=== PATIENT | male | born 1945 | race Caucasian/White ===

== ENCOUNTER → 2016-11-22 | Outpatient (CLI) | payer MEDICARE, BC ==
[~2016-11-22] MED LIST: ASPIRIN PO; CIPRO PO; LISINOPRIL PO; NORVASC PO; PATIENT'S PHARMACY; PLAVIX PO; TOPROL XL PO; UNKNOWN ABX; VYTORIN 10/20 T1 TAB PO; VYTORIN 10/40 T1 TAB PO; VYTORIN PO
--- NOTE | ~2016-11-22 | EKG ---
[id number] NAME: ZAY SAUNDERS MR#: [id number] EKG Electrocardiogram shows normal sinus rhythm and is within normal limits. Poor R wave progression V1 and V2. No previous tracings are available for comparison. Dictated by...
[2016-11-22 11:12] LABS: BASOPHIL# 0.1 X10e3 (0-0.3); EOSINOPHIL# 0.1 X10e3 (0-0.7); EOSINOPHIL% 1.8 % (0.0-7.0); HEMATOCRIT 48.5 % (38.0-50.0); LYMPHOCYTE# 1.6 X10e3 (1.0-3.5); LYMPHOCYTE% 22.5 % (17.0-45.0); MEAN CORPUSCULAR HEMOGLOBIN 31.1 PG (28-34); MEAN CORPUSCULAR HGB CONC 33.1 g/dL (30-36); MEAN PLATELET VOLUME 10.2 FL (6.5-11.5); NEUTROPHIL# 4.4 X10e3 (1.5-7.1); NEUTROPHIL% 60.7 % (40-75); PLATELET COUNT 202 X10e3 (140-420); RED BLOOD COUNT 5.16 X10e (3.90-5.60); RED CELL DISTRIBUTION WIDTH 13.9 % (11.0-15.5); WHITE BLOOD COUNT 7.3 X10e3 (4.0-10.5)
[2016-11-22 11:16] LABS: DIFF IND NO
[2016-11-22 11:44] LABS: BLOOD UREA NITROGEN 18 mg/dL (9-23); CALCIUM SERUM 9.3 mg/dL (8.4-10.2); CARBON DIOXIDE 27 mmol/L (22-31); CHLORIDE 108 mmol/L (100-111); GLOM FILT RATE Estimated ABOVE60 mL/min (>60); GLUCOSE FASTING 103 mg/dL (70-110); POTASSIUM 4.9 mmol/L (3.5-5.1); SODIUM 139 mmol/L (135-145)
== END | disposition home or self-care (01) ==
LOC: CLAB 09:53
PROVIDERS: Urology
DX: Z01.818 Encounter for other preprocedural examination (principal); N20.0 Calculus of kidney
CPT/HCPCS: 36415; 80048; 85025; 93005

== ENCOUNTER 2016-12-02 17:34 | Emergency (ER) | payer MEDICARE, BC ==
--- NOTE | ~2016-12-02 | CT4 ---
[facility] A Service of [facility] RADIOLOGY TEXT RESULTS PATIENT: ZAY SAUNDERS LOCATION: [facility] : 47 UNIT #: [id number] AGE: [address]: Jose Angel Camacho MD SEX: M ORDER DR: [id number] [facility] [address] [place], [place] [address] [id number] E MR#: [id number] Acc #: [id number] NAME: ZAY SAUNDERS : 1945 SEX: M STUDY DATE/TIME: 12/02/2016 18:02 UNIT: [facility] ROOM: STUDY DESCRIPTION: CT Abd and Pelv Wo Cont Attending Physician: Jose Angel Camacho M.D. Ordering Physician: Jose Angel Camacho M.D. Primary Care Physician: Kevin Bautista M.D. MEDICAL IMAGING REPORT This report is preliminary unless electronic signature is present EXAM CT abdomen and pelvis without IV contrast COMPARISON November 28, 2007. INDICATIONS 71-year-old male with left lower quadrant abdominal pain since this morning. Diarrhea. History of renal calculi. FINDINGS This CT exam was performed with one or more of the following radiation dose reduction techniques: Automatic exposure control, adjustment of mA and/or kV according to patient size, and iterative reconstruction. Axial CT imaging of the abdomen and pelvis was performed without IV contrast. Lack of IV contrast limits evaluation of adenopathy, vasculature and viscera. 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 Marked degenerative disc height loss and endplate sclerosis at L5-S1 where there is a posterior disc-osteophyte complex, which is small. No acute fractures or suspicious osseous lesions. Calcified right infrahilar lymph nodes and calcified right lower lobe pulmonary granuloma. Minimal calcifications of the circumflex coronary artery. Small sliding hiatal hernia is stable from CT of November 2007, at which time it was opacified with contrast. Unenhanced liver, spleen and adrenal glands are unremarkable. There is mild fatty replacement of the pancreas. There has been prior cholecystectomy. Left kidney is within normal limits. There is right-sided pelvocaliectasis with 2 layering calculi seen within the right ureteropelvic junction, measuring up to 3 mm. More inferiorly in the STS. [facility] A Service of [facility] RADIOLOGY TEXT RESULTS PATIENT: ZAY SAUNDERS LOCATION: [facility] : 47 UNIT #: [id number] AGE: [address]: Jose Angel Camacho MD SEX: M ORDER DR: proximal right ureter, there is an obstructing calculus measuring up to 6 mm, which is causing mild proximal hydroureter and pelvocaliectasis on the right. There is also a calculus within the urinary bladder measuring up to 3 mm, likely recently passed through the right ureterovesical junction and there is diffuse upstream hydroureter. No left-sided ureteral calculi. Prostate gland is top-normal size measuring up to 4.6 cm transverse. There is diffuse left colonic and sigmoid diverticulosis without evidence of acute diverticulitis. No evidence of bowel obstruction. The appendix is normal. There is right perinephric and periureteral stranding, expected finding given the obstructive uropathy. No free fluid or pneumoperitoneum. There is diffuse calcification of the abdominal aorta with involvement of the proximal left renal artery and the origins of the celiac and superior mesenteric arteries. No adenopathy. IMPRESSION 1. There are 2 nonobstructive calculi layering in the right renal pelvis dependently measuring up to 3 mm. Downstream to this, in the proximal right ureter, there is a 6 mm obstructing calculus which is causing upstream proximal right hydroureter and mild right pelvocaliectasis. Distal to this obstructive calculus, the right ureter is also dilated and this is likely secondary to a recently passed 3 mm calculus, which is just beyond the right ureterovesical junction layering within the dependent urinary bladder. There is expected right perinephric and periureteral stranding. 2. Minimal left circumflex coronary artery calcification. 3. Stable small hiatal hernia. 4. Prior cholecystectomy. 5. Diffuse diverticulosis without evidence of acute diverticulitis. 6. Arterial calcifications in the abdomen as described in the body of the report. Degenerative disc and endplate change at L5-S1. Dictated by... Jj Mckenzie M.D. THIS IS AN ELECTRONICALLY VERIFIED REPORT Jj Mckenzie M.D. at 12/07/2016 9:44 AM WILBERT/franchesca TD: 12/02/2016 21:29 JOB #: [id number] MEDICAL IMAGING REPORT Page 1 of 1 COPY
[2016-12-02 17:40] LABS: URINE SOURCE CLEAN CATCH
[2016-12-02 17:47] LABS: BASOPHIL# 0.1 X10e3 (0-0.3); BASOPHIL% 0.7 % (0-2.5); EOSINOPHIL% 0.2 % (0.0-7.0); HEMATOCRIT 48.8 % (38.0-50.0); HEMOGLOBIN 16.1 gm/dL (13.0-16.0); LYMPHOCYTE% 8.7 % (17.0-45.0); MEAN CORPUSCULAR HEMOGLOBIN 31.1 PG (28-34); MEAN CORPUSCULAR HGB CONC 33.1 g/dL (30-36); MEAN PLATELET VOLUME 10.5 FL (6.5-11.5); MONOCYTE# 1.1 X10e3 (0-1.0); NEUTROPHIL# 9.7 X10e3 (1.5-7.1); NEUTROPHIL% 81.4 % (40-75); PLATELET COUNT 175 X10e3 (140-420); RED BLOOD COUNT 5.19 X10e (3.90-5.60); RED CELL DISTRIBUTION WIDTH 13.6 % (11.0-15.5); WHITE BLOOD COUNT 11.9 X10e3 (4.0-10.5)
[2016-12-02 17:48] LABS: DIFF IND NO
[2016-12-02 17:49] LABS: URINE APPEARANCE TURBID; URINE BILIRUBIN NEG (NEG); URINE BLOOD 3+ (NEG); URINE COLOR YELLOW; URINE GLUCOSE NEG (NEG); URINE KETONE NEG (NEG); URINE LEUKOCYTE ESTERASE 1+ (NEG); URINE NITRATE NEG (NEG); URINE PROTEIN 1+ (NEG); URINE SPECIFIC GRAVITY 1.018 (1.003-1.035); URINE UROBILINOGEN 0.2 MG/DL (NEG)
[2016-12-02 17:52] LABS: CULTURE INDICATED? YES; URBCS1 AUWI 100-200 /[HPF] (0-2); URINE SQUAMOUS EPITHELIAL CELL OCC /[HPF]
[2016-12-02 18:03] LABS: URINE AMORPHOUS SEDIMENT AMORP PHOSPHATES; URINE BACTERIA AUWI 3+ (NEGATIVE); URINE MUCUS PRESENT
[2016-12-02 18:15] LABS: BILIRUBIN, DIRECT 0.2 mg/dL (0.0-0.2); BILIRUBIN,INDIRECT 0.7 mg/dL (0.0-0.9); BILIRUBIN,TOTAL 0.9 mg/dL (0.2-2.0); BUN/CREATININE RATIO 13.84; CREATININE SERUM 1.3 mg/dL (0.6-1.4); GLOM FILT RATE Estimated 55.3 mL/min (>60); POTASSIUM 3.8 mmol/L (3.5-5.1)
== END 2016-12-02 19:04 | disposition home or self-care (01) ==
LOC: CED 17:34
PROVIDERS: Emergency Medicine
DX: N13.2 Hydronephrosis with renal and ureteral calculous obstruction (principal); Z79.82 Long term (current) use of aspirin; Z79.899 Other long term (current) drug therapy
CPT/HCPCS: 36415; 74176; 80048; 80076; 81003; 83690; 85025; 87086; 99284